=== PATIENT | male | born 1960 | race Caucasian/White ===

== ENCOUNTER 2020-02-12 16:02 | Emergency (ER) | payer OTHER ==
[~2020-02-12] VITALS: Ht 172.7 cm; Wt 96.2 kg
[2020-02-12 16:17] VITALS: BP 138/85; Ht 172.7 cm; Wt 96.2 kg
== END 2020-02-12 19:06 | disposition home or self-care (01) ==
LOC: ED 16:02
DX: S86.012A Strain of left Achilles tendon, initial encounter (principal); X50.1XXA Overexertion from prolonged static or awkward postures, initial encounter; Y93.89 Activity, other specified; Y92.89 Other specified places as the place of occurrence of the external cause; Y99.8 Other external cause status
CPT/HCPCS: J1885; Q0092